=== PATIENT | female | born 1990 | race Caucasian/White ===

== ENCOUNTER 2017-02-01 08:53 | Emergency (ER) | payer MEDICAID ==
[~2017-02-01] VITALS: Ht 154.9 cm; Wt 78.0 kg
[~2017-02-01 08:53] MED LIST: ALB.5NB20 IH
[2017-02-01 08:56] VITALS: Ht 154.9 cm; Wt 78.0 kg
[2017-02-01 11:01] LABS: URINE BLOOD (Dip) POC Negative (NEGATIVE)
--- NOTE | 2017-02-01 11:35 | ERA ---
ER Documentation Chief Complaint Date/Time DATE: 02/01/17 TIME: 11:30 Chief Complaint ap x 1 week HPI 26-year-old otherwise healthy female presenting with a chief complaint of 1-2 week abdominal pain rated 3 out of 10. Pain is worse in the mornings. Relieved with bowel movements. Describes pencil stools. Patient is having mild constipation. Patient used to take medication for constipation. Patient still has the medication but just does not use it. Patient's last bowel movement was yesterday.No other characteristics. States that it feels hard and tight when the pain occurs. Denies any physical hardness to the abdomen or she touches it. Minimal tenderness. Has not taken any medications to relieve the symptoms. Patient denies diarrhea, abdominal pain, decreased appetite, recent unintentional weight loss, migrating pain, symptoms associated with food, new or recently changed medications, genital pain or ingestion of new or undercooked food. ROS All systems reviewed and are negative except as per history of present illness. Medications Home Meds Reported Medications Albuterol Sulfate* (Albuterol Sulfate* Neb) 20 Ml Nebu, 20 ML IH Y 04/06/12 Allergies Allergies: Uncoded Allergies: SEAFOOD (Allergy, Severe, ANAPHYLACTIC, 04/06/12) STATED SHE GETS HIVES AND THROAT CLOSES PMhx/Soc Medical and Surgical Hx: pt denies Surgical Hx History of Surgery: No Anesthesia Reaction: No Hx Neurological Disorder: No Hx Respiratory Disorders: Yes (H/O ASTHMA) Hx Cardiac Disorders: No Hx Psychiatric Problems: No Hx Miscellaneous Medical Probl: No (NONE) Hx Alcohol Use: Yes (OOC) Hx Substance Use: No Hx Tobacco Use: No Smoking Status: Never smoker Physical Exam Vitals Vital Signs Date Time Temp Pulse Resp B/P Pulse Ox O2 Delivery O2 Flow Rate FiO2 02/01/17 08:56 98.1 79 18 127/75 99 Physical Exam Const: 26-year-old female no acute distress Head: Atraumatic Eyes: Normal Conjunctiva ENT: Normal External Ears, Nose and Mouth. Neck: Full range of motion..~ No meningismus. Resp: Clear to auscultation bilaterally Cardio: Regular rate and rhythm, no murmurs. Radial pulses 2+ bilaterally. Cap refill less than 2 seconds. Abd: Soft, non tender, non distended. Normal bowel sounds. No rebound tenderness. No tenderness in the left lower quadrant to palpation. Skin: No petechiae or rashes Back: No midline or flank tenderness Ext: No cyanosis, or edema Neur: Awake and alert Psych: Normal Mood and Affect Results 24 hrs Laboratory Tests Test 02/01/17 11:07 Bedside Urine pH (LAB) 5.5 Bedside Urine Protein (LAB) Negative Bedside Urine Glucose (UA) Negative Bedside Urine Ketones (LAB) Negative Bedside Urine Blood Negative Bedside Urine Nitrite (LAB) Negative Bedside Urine Leukocyte Esterase (L Negative Procedures/MDM Patient was evaluated and worked up for left lower quadrant abdominal discomfort as described in history and physical examination. Refused pain medications in the ED. Patient currently has no pain. Urinalysis unremarkable. Urine test negative. Most of her diagnosis is left lower quadrant abdominal pain of unknown origin versus irritable bowel syndrome. At this time I do not suspect ovarian torsion, tubo-ovarian abscess, mechanical obstruction, ectopic , hernia, appendicitis, intestinal ischemia, PID, AAA, diverticulitis or other acute abdomen. The patient is well appearing, and tolerates PO. I have spoke with the patient regarding their condition and future management. They have verbally responded that they understand their status and treatment plan. The patients vitals are stable, and their current condition is appropriate for discharge. The patient will be given discharge instructions with return precautions. Departure Diagnosis: Primary Impression: Abdominal pain Qualified Code: R10.30 - Lower abdominal pain Condition: Stable Patient Instructions: Diet and Lifestyle Tips for IBS Ref[facility] Usted se quinn hecho un examen mdico de control que le indica que no est en livan condicin que requiera tratamiento urgente en el Departamento de Emergencia. Un estudio ms profundo y el tratamiento de oquendo condicin pueden esperar sin ningn riesgo hasta que usted sea atendida/o en el consultorio de oquendo mdico o livan cl tao. Es responsabilidad suya arreglar livan bahman para el seguimiento del aliyah. MANEJO DE CONDICIONES NO URGENTES EN EL FUTURO 1) Si usted tiene un mdico de atencin primaria: Usted debera llamar a oquendo mdico de atencin primaria antes de venir al departamento de emergencia. Despus de las horas de consultorio, oquendo doctor o oquendo asociado/a est disponible por telfono. El mdico o enfermero de jair en el servicio telefnico puede asesorarle por philly medio para atender el problema, o aliyah contrario se puede programar livan bahman. 2) Si usted no tiene un mdico de atencin primaria: Llame al mdico o clnica de referencia que aparece abajo christophe las horas de consultorio para hacer livan bahman para que le vean. CLINICAS: [facility] [phone] [facility] [phone] [facility] [phone] [facility] [phone] [place] [phone] [facility] [phone] Additional Instructions: Follow up with your PCP within the next 1-3 days for a more thorough evaluation and a possible referral to a specialist. Return the the emergency department immediately if symptoms worsen or change. If you have any questions regarding medications, ask your pharmacist or us before you leave. If any adverse reactions occur while taking your medications, discontinue the treatment and return to the emergency department immediately. Take your medications as directed, and complete the entire course of treatment. RJ CÁRDENAS PA-C Feb 01, 2017 11:34
== END 2017-02-01 13:50 | disposition home or self-care (01) ==
LOC: FTE 08:53
DX: R10.32 Left lower quadrant pain (principal); J45.909 Unspecified asthma, uncomplicated
CPT/HCPCS: 81003; Z7502; 99282